=== PATIENT | female | born 1950 | race Caucasian/White ===

== ENCOUNTER → 2017-09-27 | Outpatient (CLI) | END | disposition home or self-care (01) ==

== ENCOUNTER → 2018-02-08 | Outpatient (CLI) | payer MEDICARE, OTHER ==
[~2018-02-08] MED LIST: BUDE32NIS; BUPR75; CELE200; DICY20 PO; Divigel0.5 MG; ESOM20 PO; ESTR.1TPBW TOP; FEXO60 PO; GUAI600T33 PO; HYDR1TAB94; LEVSOD50 PO; LIVALO2 MG; LORA.5; LOSA25; OXYACE5T PO; PREG150; PROG100 PO; SIMV20 PO; TRAZ50 PO
== END | disposition home or self-care (01) ==
LOC: LAB 07:10 → LAB SHORT 07:10 → LAB FUT 09-15 14:05 → EDSTATUS 09-15 14:05
PROVIDERS: Internal Medicine
DX: E24.9 Cushing's syndrome, unspecified (principal)
CPT/HCPCS: 81050

== ENCOUNTER → 2018-05-15 05:53 | Inpatient (IN) | payer MEDICARE, OTHER ==
[~2018-05-15] VITALS: Ht 165.1 cm; Wt 86.2 kg
[~2018-05-15 05:53] MED LIST changes: +ASPI325EC PO; +Aygestin5 MG PO; +CLARITIN-D 121 EACH PO; +CLIMARA1 PATCH.W1 TOP; +DIPATRL PO; +DIVIGEL1 EAC1 TOP; +DIVIGEL1 EACH TOP; +FURO20 PO; +Flonase 0.05% N16 GM; +GABA300 PO; +LEVSOD150 PO; +LOSA25 PO; +Lomotil Tablet1 EACH PO; +OXYC5 PO; +POTA10T PO; +PRAV20 PO; +TRAM50 PO; +Ultram50 MG PO
--- NOTE | 2018-05-15 08:23 | NUR ---
LE [address] GUILLEN REGARDING PT 1/2CM ROUND RAISED BLISTER APPEARING SURROUNDED BY RED TISSUE ON SURGICAL LUE. PT ALSO HAS ELEVATED B/P. SHE TOOK HER MEDS LASTNIGHT EXCEPT FRO NUERONTIN WITH A SIP OF WATER LASTNIGHT, PT RECEIVED PO MEDS PER ORDER THIS AM. PT DENIES ANY CHANGE IN MENTATION, BALANCE IS STEADY. BLISTER OPENED WITH CHLORAHEXIDINE WIPES AND IS DRAINING SCANT S/S DRAINAGE. DR GUILLEN DECIDED TO CANCEL THE SURGERY UNTIL THE PATINETS WOUND IS HEALED.
== END | disposition home or self-care (01) | DRG 554 ==
LOC: SURS 05:53 → PRE IP 07:30
PROVIDERS: ADMIT Orthopaedic Surgery
DX: M19.012 Primary osteoarthritis, left shoulder (principal); Z53.09 Procedure and treatment not carried out because of other contraindication
CPT/HCPCS: J0171; J0690; J0735; J1885; J2795; J7120

== ENCOUNTER 2018-06-05 08:55 | Inpatient (IN) | payer MEDICARE, OTHER ==
[~2018-06-05] VITALS: Ht 165.1 cm; Wt 84.8 kg
[~2018-06-05 08:55] MED LIST changes: -ASPI325EC PO; -OXYC5 PO
--- NOTE | 2018-06-05 09:47 | NUR ---
Ambulatory in Day Surgery History, Chart, Medications and Allergies reviewed before start of procedure. Lungs clear T/O to Auscultation. Patient confirms NPO status and agrees with scheduled surgery. Pre-Op teaching done. Pt verbalizes understanding.
--- NOTE | 2018-06-05 12:50 | NUR ---
06/05/18 1250 Bird Qureshi ANCEF 2GM IVPB PREOPERATIVELY, FORER BY JARETH
--- NOTE | 2018-06-05 15:32 | NUR ---
PT COMES TO PACU WITH PARTIAL SHOULDER IMMOBILIZER IN PLACE SHE WIGGLES FINGERS . STATES HER FINGERS FEEL A LITTLE NUMB BUT SHE WAS ABLE TO TELL WHAT FINGER I WAS TOUCHING
--- NOTE | 2018-06-05 19:08 | NUR ---
PT HAS BEEN STABLE POST OP. PT MIN ASSIST OOB TO BATHROOM AND CHAIR. IMMOBILIZER ON. PT HAS TINGLING TO LEFT FINGERS R/T BLOCK. DENIES PAIN. PT VOIDING WELL. PT TEMO REG DIET. SL IV. PAS AND TEDS ON. PLAN TO WORK WITH THERAPY IN THE AM AND DC HOME. PT CALLS APPROPRIATELY NEEDED.
--- NOTE | 2018-06-06 04:21 | NUR ---
SUMMARY: PT IS POD1 LT TSA. NO ACUTE CHANGE OVERNIGHT. PAIN MANAGED WITH 2 OXYCODONE ABOUT Q4. SURGICAL SITE WNL, IMMOBILIZER IN PLACE. PT EATING AND VOIDING WELL, UP WITH SBA.
[2018-06-06 04:58] LABS: BASOPHILS ABSOLUTE AUTO 0.03 K/mm3 (0.00-0.23); BASOPHILS PERCENT AUTO 0 % (0-2); EOSINOPHILS ABSOLUTE AUTO 0.01 K/mm3 (0.00-0.68); EOSINOPHILS PERCENT AUTO 0 % (0-6); Hematocrit 36.3 % (33.0-51.0); Hemoglobin 11.3 g/dL (11.5-16.0); IMMATURE GRAN ABSOLUTE AUTO 0.17 K/mm3 (0.00-0.10); IMMATURE GRAN PERCENT AUTO 1 % (0-1); LYMPHOCYTES ABSOLUTE AUTO 1.29 K/mm3 (0.84-5.20); LYMPHOCYTES PERCENT AUTO 8 % (21-46); MONOCYTES ABSOLUTE AUTO 1.78 K/mm3 (0.16-1.47); MONOCYTES PERCENT AUTO 11 % (4-13); Mean Corpuscular HGB 29.3 pg (26.0-34.0); Mean Corpuscular HGB Conc 31.1 g/dL (31.5-36.5); Mean Corpuscular Volume 94 fL (80-100); NEUTROPHILS ABSOLUTE AUTO 13.43 K/mm3 (1.96-9.15); NEUTROPHILS PERCENT AUTO 80 % (41-73); Platelet Count 412 K/mm3 (150-400); RDW Coefficient Variation 14.1 % (11.7-14.2); RDW Standard Deviation 48.3 fL (35.1-46.3); Red Blood Cell Count 3.86 M/mm3 (3.80-5.20); White Blood Cell Count 16.71 K/mm3 (4.00-11.30)
[2018-06-06 05:18] LABS: Anion Gap 10 mmol/L (6-16); Blood Urea Nitrogen 20 mg/dL (8-24); CO2, Blood 23 mmol/L (21-32); Calcium, Blood 8.4 mg/dL (8.5-10.1); Chloride, Blood 105 mmol/L (98-108); Creatinine, Blood 0.77 mg/dL (0.40-1.00); Glomerular Filtration Rate >60 (60-); Glucose, Blood 119 mg/dL (70-99); Magnesium, Blood 2.3 mg/dL (1.6-2.4); Potassium, Blood 4.5 mmol/L (3.5-5.5); Sodium, Blood 138 mmol/L (136-145)
[2018-06-06] MEDS ORDERED: ASPI325EC PO (10:34)
[2018-06-06] MEDS ORDERED: OXYC5 PO (10:35)
--- NOTE | 2018-06-06 12:45 | NUR ---
PATIENT D/C'D HOME AT THIS TIME WITH DAUGHTER IN LAW. PATIENT STATES UNDERSTANDING OF MEDS, ACTIVITY, F/U APPT, WOUND CARE, ETC. PATIENT TOLERATING PO, VOIDING WELL. STATES PAIN CONTROLLED WITH PO PAIN MED. NO ACUTE CHANGES OR C/O,
== END 2018-06-06 12:46 | disposition home or self-care (01) | DRG 483 ==
LOC: SURS 08:55 → PRE IP 10:45 → SURS 16:35
PROVIDERS: ADMIT Orthopaedic Surgery
PROC: 0RRK0JZ Replacement of Left Shoulder Joint with Synthetic Substitute, Open Approach (ICD-10-PCS; principal; 2018-06-05 10:45)
DX: M19.012 Primary osteoarthritis, left shoulder (principal); G47.33 Obstructive sleep apnea (adult) (pediatric); I10 Essential (primary) hypertension; M79.7 Fibromyalgia; K21.9 Gastro-esophageal reflux disease without esophagitis; E78.5 Hyperlipidemia, unspecified; E05.00 Thyrotoxicosis with diffuse goiter without thyrotoxic crisis or storm; Z88.1 Allergy status to other antibiotic agents; Z88.2 Allergy status to sulfonamides; Z88.8 Allergy status to other drugs, medicaments and biological substances; Z79.51 Long term (current) use of inhaled steroids; Z79.899 Other long term (current) drug therapy
CPT/HCPCS: 36415; 73030; 80048; 83735; 85025; 87070; 87081; 88300; 94762; 97110; 97161; 97165; 97530; 97535; C1776; J0171; J0690; J0735; J1100; J1885; J2250; J2405; J2795; J3010; J7120

== ENCOUNTER → 2021-10-05 | Outpatient (CLI) | payer MEDICARE, OTHER ==
[~2021-10-05] MED LIST changes: +ASPI325EC PO; +OXYC5 PO
[2021-10-05 17:41] LABS: BASOPHILS ABSOLUTE AUTO 0.05 K/mm3 (0.00-0.23); BASOPHILS PERCENT AUTO 1 % (0-2); EOSINOPHILS ABSOLUTE AUTO 0.04 K/mm3 (0.00-0.68); EOSINOPHILS PERCENT AUTO 1 % (0-6); Hematocrit 41.9 % (33.0-51.0); Hemoglobin 13.5 g/dL (11.5-16.0); IMMATURE GRAN ABSOLUTE AUTO 0.02 K/mm3 (0.00-0.10); IMMATURE GRAN PERCENT AUTO 0 % (0-1); LYMPHOCYTES ABSOLUTE AUTO 3.03 K/mm3 (0.84-5.20); LYMPHOCYTES PERCENT AUTO 38 % (21-46); MONOCYTES ABSOLUTE AUTO 0.81 K/mm3 (0.16-1.47); MONOCYTES PERCENT AUTO 10 % (4-13); Mean Corpuscular HGB 30.3 pg (26.0-34.0); Mean Corpuscular HGB Conc 32.2 g/dL (31.5-36.5); Mean Corpuscular Volume 94 fL (80-100); Mean Platelet Volume 10.1 fL (9.1-12.4); NEUTROPHILS ABSOLUTE AUTO 4.09 K/mm3 (1.96-9.15); NEUTROPHILS PERCENT AUTO 51 % (41-73); Platelet Count 395 K/mm3 (150-400); RDW Coefficient Variation 13.1 % (11.7-14.2); RDW Standard Deviation 45.1 fL (35.1-46.3); Red Blood Cell Count 4.45 M/mm3 (3.80-5.20); White Blood Cell Count 8.04 K/mm3 (4.00-11.30)
[2021-10-05 18:01] LABS: Free Thyroxine 1.3 ng/dL (0.70-1.60)
[2021-10-05 18:04] LABS: Albumin/Globulin Ratio 1.1 (0.8-1.8); Bilirubin, Total 0.2 mg/dL (0.1-1.0); Bun/Creatinine Ratio 19.1 (12.0-20.0); Creatinine, Blood 0.63 mg/dL (0.40-1.00); Globulin, Blood 3.7 g/dL (2.2-4.0); Potassium, Blood 3.7 mmol/L (3.5-5.5); Thyroid Stimulating Hormone 0.577 uIU/mL (0.360-4.800); Total Protein, Blood 7.7 g/dL (6.4-8.2); Triiodothyronine, Free 2.5 pg/mL (2.18-3.98)
== END ==
LOC: LAB SHORT 16:00
PROVIDERS: Internal Medicine
DX: E03.9 Hypothyroidism, unspecified (principal); I10 Essential (primary) hypertension; R10.13 Epigastric pain; R11.0 Nausea; R53.83 Other fatigue; R63.4 Abnormal weight loss
CPT/HCPCS: 80053; 83690; 84439; 84443; 84481; 85025; 85651

== ENCOUNTER → 2021-12-16 | Outpatient (CLI) | payer MEDICARE, OTHER | END | disposition home or self-care (01) | LOC: LAB SHORT 12:35 → PLD 12:35 | DX: L57.0 Actinic keratosis (principal) | CPT/HCPCS: 88305 ==

== ENCOUNTER 2022-06-15 22:47 | Emergency (ER) | payer MEDICARE, OTHER ==
[~2022-06-15] VITALS: Ht 165.1 cm; Wt 74.8 kg
[2022-06-15 23:10] LABS: Hematocrit 37.6 % (33.0-51.0); Hemoglobin 12.5 g/dL (11.5-16.0); Mean Corpuscular HGB 30.2 pg (26.0-34.0); Mean Corpuscular HGB Conc 33.2 g/dL (31.5-36.5); Mean Corpuscular Volume 91 fL (80-100); Mean Platelet Volume 8.6 fL (9.1-12.4); Platelet Count 476 K/mm3 (150-400); RDW Coefficient Variation 13.1 % (11.7-14.2); RDW Standard Deviation 43.7 fL (35.1-46.3); Red Blood Cell Count 4.14 M/mm3 (3.80-5.20); White Blood Cell Count 11.57 K/mm3 (4.00-11.30)
[2022-06-15 23:35] LABS: Albumin, Blood 3.6 g/dL (3.4-5.0); Bilirubin, Total 0.2 mg/dL (0.1-1.0); Bun/Creatinine Ratio 21.8 (12.0-20.0); Calcium, Blood 9.5 mg/dL (8.5-10.1); Creatinine, Blood 0.78 mg/dL (0.40-1.00); Globulin, Blood 3.6 g/dL (2.2-4.0); Total Protein, Blood 7.2 g/dL (6.4-8.2)
[2022-06-15 23:57] LABS: BASOPHILS PERCENT MAN 0 % (0-2); EOSINOPHILS ABSOLUTE MAN 0.11 K/mm3 (0.00-0.68); EOSINOPHILS PERCENT MAN 1 % (0-6); LYMPHOCYTES PERCENT MAN 45 % (21-46); MONOCYTES PERCENT MAN 7 % (4-13); NEUTROPHILS ABSOLUTE MAN 5.43 K/mm3 (1.96-9.15); SEG NEUTROPHILS PERCENT MAN 47 % (41-73); TOTAL CELLS COUNTED 100
[2022-06-16] MEDS ORDERED: MECL25 PO (00:20)
[2022-06-16] MEDS ORDERED: ONDA4ODT MM (00:20)
== END 2022-06-16 00:56 | disposition home or self-care (01) ==
LOC: ER 22:47
PROVIDERS: Emergency Medicine
DX: R42 Dizziness and giddiness (principal); Z88.2 Allergy status to sulfonamides; Z88.0 Allergy status to penicillin; Z88.8 Allergy status to other drugs, medicaments and biological substances; Z79.899 Other long term (current) drug therapy; Z79.82 Long term (current) use of aspirin
CPT/HCPCS: 36415; 80053; 84484; 85025; 93005; 93010; 96374; 99284-25; A9270; J2405

== ENCOUNTER → 2022-07-19 | Outpatient (CLI) | payer MEDICARE, OTHER ==
[~2022-07-19] MED LIST changes: +MECL25 PO; +ONDA4ODT MM
[2022-07-19 14:44] LABS: Source, Urine Clean Catch
[2022-07-19 16:59] LABS: Appearance, Urine Clear (Clear); Bilirubin, Urine Neg (Neg); Blood, Urine 2+ (Neg); Color, Urine Yellow (P-Yellow); Glucose Qualitative, Urine Neg (Neg); Ketones, Urine Neg (Neg); Leukocyte Esterase, Urine Neg (Neg); Nitrite, Urine Neg (Neg); Protein, Urine Neg (Neg); Specific Gravity, Urine 1.005 (1.003-1.022); Urobilinogen, Urine NORM (Normal); pH, Urine 6.5 (5.0-8.0)
[2022-07-19 17:22] LABS: Red Blood Cells, Urine 0-2 /hpf (0-2); Squamous Epithelial Cells Few /hpf (Few); White Blood Cells, Urine 0-2 /hpf (0-5)
[2022-07-19 17:23] LABS: Bacteria Rare /hpf
== END | disposition home or self-care (01) ==
LOC: LAB SHORT 14:43 → LAB 14:43
PROVIDERS: Internal Medicine
DX: R35.0 Frequency of micturition (principal)
CPT/HCPCS: 81001

== ENCOUNTER 2023-03-15 08:21 | Day surgery (SDC) | payer MEDICARE, OTHER | END 2023-03-24 22:36 | disposition home or self-care (01) | LOC: MOI MAM 08:21 | DX: N62 Hypertrophy of breast (principal); R92.0 Mammographic microcalcification found on diagnostic imaging of breast | CPT/HCPCS: 19081; 88305; A4648 ==

== ENCOUNTER 2023-05-10 08:49 | Day surgery (SDC) | payer MEDICARE, OTHER ==
[2023-05-11] MEDS ORDERED: ESTRADIOL PO (11:09)
[2023-05-11] MEDS ORDERED: TIMDOROPSO BOTHEYES (11:34)
[2023-05-11] MEDS ORDERED: ZYRTEC10 M2 PO (11:34)
[2023-05-11] MEDS ORDERED: DIVIGEL (11:35)
[2023-05-11] MEDS ORDERED: Flonase 0.05% N16 GM (11:43)
[2023-05-11] MEDS ORDERED: HYDCHL25 PO (11:44)
[2023-05-11] MEDS ORDERED: HYDACE10B (11:46)
[2023-05-11] MEDS ORDERED: LATA.005SO BOTHEYES (11:47)
[2023-05-11] MEDS ORDERED: Ativan1 MG PO (11:48)
== END 2023-05-12 23:02 | disposition home or self-care (01) ==
LOC: MOI MAM 08:49 → MOI US 05-12 10:15 → MOI MAM 05-12 23:02
DX: N60.91 Unspecified benign mammary dysplasia of right breast (principal)
CPT/HCPCS: 19281; A4648

== ENCOUNTER 2023-05-17 05:52 | Day surgery (SDC) | payer MEDICARE, OTHER ==
[2023-05-17] VITALS (7 sets, daily range): BP systolic 152–172; BP diastolic 71–91
[~2023-05-17] VITALS: Ht 165.1 cm; Wt 81.4 kg
[~2023-05-17 05:52] MED LIST changes: +Ativan1 MG PO; +DIVIGEL; +ESTRADIOL PO; +HYDACE10B; +HYDCHL25 PO; +LATA.005SO BOTHEYES; +TIMDOROPSO BOTHEYES; +ZYRTEC10 M2 PO
--- NOTE | 2023-05-17 09:10 | NUR ---
2 FAILED ATTEMPTS PER THIS RN AND 1 PER ERF
--- NOTE | 2023-05-17 09:13 | NUR ---
Ambulatory in Day Surgery Patient confirms NPO status and agrees with scheduled surgery. Patient States Post-Procedure ride home has been arranged. Pre-Op teaching done. Pt verbalizes understanding. History, Chart, Medications and Allergies reviewed before start of procedure.
--- NOTE | 2023-05-17 09:30 | NUR ---
PT UP TO BATHROOM WITH ASSIST. PT VOIDED WITHOUT DIFFICULTY.
--- NOTE | 2023-05-17 09:57 | NUR ---
Patient up to Ambulate independently. Gait steady. Discharge instructions reviewed with patient. Patient verbalizes understanding. Copy given to patient to take home. Patient States Post-Procedure ride home has been arranged, RIDE REPORTS WILL BE HERE APPROX 10:30 TO PICK PT UP. PT ASSISTED WITH ADL'S PRN. PT DECLINES OTHER NEED.
--- NOTE | 2023-05-17 10:15 | NUR ---
PT RIDE TO BE HERE SOON. Discharged via wheelchair to private car for ride home.
== END 2023-05-17 10:16 | disposition home or self-care (01) ==
LOC: ORSCMMR 05:52 → ORD 07:30 → ORSCMMR 07:30 → ORD 09:00 → ORSCMMR 10:16
PROVIDERS: Surgery
PROC: 0HBT0ZX Excision of Right Breast, Open Approach, Diagnostic (ICD-10-PCS; principal; 2023-05-17 07:30)
DX: N60.91 Unspecified benign mammary dysplasia of right breast (principal); I10 Essential (primary) hypertension; G47.33 Obstructive sleep apnea (adult) (pediatric); K21.9 Gastro-esophageal reflux disease without esophagitis; E05.00 Thyrotoxicosis with diffuse goiter without thyrotoxic crisis or storm; Z79.899 Other long term (current) drug therapy
CPT/HCPCS: 88305; 88307; J0690; J1100; J1885; J2405; J2704; J3010; J7120